=== PATIENT | female | born 1980 | race Caucasian/White ===

== ENCOUNTER 2021-02-22 09:34 | Emergency (ER) | payer SELFPAY ==
[~2021-02-22] VITALS: Ht 157.5 cm; Wt 49.0 kg
[2021-02-22 09:36] VITALS: BP_SYST 133
[2021-02-22 09:47] VITALS: BP_SYST 133
--- NOTE | 2021-02-22 09:47 | NUR ---
Patient given written and verbal discharge instructions and verbalizes understanding. ER MD discussed with patient the results and treatment provided. Patient in stable condition. ID arm band removed. no Rx of given. Patient educated on pain management and to follow up with PMD. Pain Scale 3. Opportunity for questions provided and answered. Medication side effect fact sheet provided.
== END 2021-02-22 09:47 ==
LOC: SED 09:34
DX: S16.1XXA Strain of muscle, fascia and tendon at neck level, initial encounter (principal); S05.12XA Contusion of eyeball and orbital tissues, left eye, initial encounter; Y35.813A Legal intervention involving manhandling, suspect injured, initial encounter; Y93.89 Activity, other specified; Y92.89 Other specified places as the place of occurrence of the external cause; Y99.8 Other external cause status
CPT/HCPCS: 99283